=== PATIENT | male | born 1960 | race Caucasian/White ===

== ENCOUNTER 2023-09-22 09:16 | Day surgery (SDC) | payer OTHER ==
[2023-09-21 10:20] VITALS: BMI 26.2
[~2023-09-22 09:16] MED LIST: EPINEPHrine 0.3 MG in Ophthalmic Irrigation Solution 500 ML IRR SCH
[2023-09-22] MEDS ORDERED: Cyclopentolate 1% Opth Drop 2 ML BOT ONE (10:58)
[2023-09-22] MEDS ORDERED: PHENYLephrine 2.5% Ophth Soln 15 ml Bottle ONE (10:59)
[2023-09-22] MEDS ORDERED: Famotidine/PF 20 mg/2ml Vial ONE (11:32)
[2023-09-22] MEDS ORDERED: fentaNYL 50 mcg/mL 1 mL Vial ONE ×2 (11:34→13:09)
[2023-09-22] MEDS ORDERED: PROPOFOL 20 ML ONE (11:34)
[2023-09-22] MEDS ORDERED: Ondansetron PF 4 MG/2 ML Vial ONE (11:35)
[2023-09-22] MEDS ORDERED: PHENYLEPHRINE-NS 100 MCG/ML 10 ML SYRINGE ONE (11:35)
[2023-09-22] MEDS ORDERED: Lidocaine 2% PF 5 ML VIAL ONE (11:35)
[2023-09-22] MEDS ORDERED: Bupivacaine 0.75% 10 ML VIAL ONE (11:48)
[2023-09-22] MEDS ORDERED: Triamcinolone 40 MG/ML VIAL ONE (11:48)
[2023-09-22] MEDS ORDERED: CEFAZOLIN 1 GM VIAL ONE (11:48)
[2023-09-22] MEDS ORDERED: Lidocaine 4% PF 5 ML AMP ONE (11:48)
[2023-09-22] MEDS ORDERED: Lidocaine 1% PF 5 ML VIAL ONE (11:48)
[2023-09-22] MEDS ORDERED: Maxitrol 0.1% Opth Oint 3.5 GM TUBE ONE (11:48)
[2023-09-22] MEDS ORDERED: Metoprolol Tartrate 5 MG/5 ML VIAL ONE (13:09)
[2023-09-22] MEDS ORDERED: hydrALAZINE 20 MG/ML VIAL ONE (13:40)
[2023-09-22] MEDS ORDERED: Acetaminophen 500 MG TAB ONE (14:21)
[2023-09-22] MEDS ORDERED: Morphine 2 MG/ML VIAL ONE ×2 (14:41→15:09)
== END 2023-09-22 16:17 | disposition home or self-care (01) ==
LOC: SDC 09:16
PROVIDERS: ATTEND Ophthalmology Retina Specialist
PROC: 08T53ZZ Resection of Left Vitreous, Percutaneous Approach (ICD-10-PCS; principal; 2023-09-22)
DX: H59.022 Cataract (lens) fragments in eye following cataract surgery, left eye (principal); H27.02 Aphakia, left eye
CPT/HCPCS: J0171; J0360; J0690; J2001; J2272; J2405; J2704; J3010; J3301; J3490; S0028